=== PATIENT | female | born 1940 | race Two or more races ===

== ENCOUNTER 2024-11-18 07:38 | Day surgery (SDC) | payer OTHER ==
[2024-11-18] MEDS ORDERED: MIDAZOLAM HCL 2 MG/2 ML VIAL IV ONE (11:45)
[2024-11-18] MEDS ORDERED: DIPHENHYDRAMINE HCL 50 MG/ML VIAL 1ML IV ONE (11:45)
[2024-11-18] MEDS ORDERED: fentaNYL CITRATE 50 MCG/ML AMPUL IV PUSH ONE (11:45)
[2024-11-18] MEDS ORDERED: ENALAPRILAT DIHYDRATE 1.25 MG/ML VIAL IV ONE (15:00)
== END 2024-11-18 13:25 | disposition home or self-care (01) ==
LOC: AMB-ENDOS 07:38
PROVIDERS: ATTEND Colon & Rectal Surgery
DX: K57.20 Diverticulitis of large intestine with perforation and abscess without bleeding (principal); K52.89 Other specified noninfective gastroenteritis and colitis; Z93.3 Colostomy status; Z88.6 Allergy status to analgesic agent